=== PATIENT | female | born 1995 | race Caucasian/White ===

== ENCOUNTER 2018-09-06 20:25 | Emergency (ER) | payer OTHER ==
[2018-09-06 22:22] VITALS: BP 118/50
--- NOTE | 2018-09-06 22:22 | ER Document Report ---
ED Medical Screen (RME) - General Chief Complaint: Drainage from Ear Stated Complaint: EAR BLEEDING Time Seen by Provider: 09/06/18 20:52 Mode of Arrival: Ambulatory Information source: Patient Notes: 22-year-old female presented to ED for complaint of left ear pain and bleeding. She states she woke up with her ear full of blood this morning. She has level 2 pain in the ear when I examined her. There is no obvious source for the bleeding but there is dark old blood filling the ear canal. Patient states she has had multiple ear surgeries and widening surgeries to this ear. She states she has not put anything in her ear to injure her ear. I have consulted Dr. Méndez who will come and examined the patient and take over the patient's care. I have greeted and performed a rapid initial assessment of this patient. A comprehensive ED assessment and evaluation of the patient, analysis of test results and completion of medical decision making process will be conducted by an additional ED providers. TRAVEL OUTSIDE OF THE [place] IN LAST 30 DAYS: No - Related Data Allergies/Adverse Reactions: No Known Allergies Allergy (Unverified 09/06/18 20:29) Past Medical History Renal/ Medical History: Denies: Hx Peritoneal Dialysis
--- NOTE | 2018-09-06 23:33 | ER Document Report ---
ED ENT - General Chief Complaint: Drainage from Ear Stated Complaint: EAR BLEEDING Time Seen by Provider: 09/06/18 20:52 Primary Care Provider: SILVINO SPANN DO [ASSOCIATE] - Follow up in 1 week Mode of Arrival: Ambulatory TRAVEL OUTSIDE OF THE [place] 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 Denies any trauma or other injury to the area recently. - Related Data Allergies/Adverse Reactions: No Known Allergies Allergy (Unverified 09/06/18 20:29) Past Medical History - General Information source: Patient - Social History Smoking Status: Never Smoker Family History: None Patient has suicidal ideation: No Patient has homicidal ideation: No Renal/ Medical History: Denies: Hx Peritoneal Dialysis Review of Systems - Review of Systems -: Yes All other systems reviewed and negative Physical Exam - Vital signs Vitals: Temp Pulse BP Pulse Ox 98.3 F 68 118/50 L 98 09/06/18 20:47 09/06/18 20:47 09/06/18 20:47 09/06/18 20:47 - General General appearance: Appears well, Alert - HEENT Head: Normocephalic Eyes: Normal Conjunctiva: Normal Cornea: Normal Ears: Other - The right ear is normal in appearance and the external, has a clear auditory canal, normal TM Left ear demonstrates obvious blood at the edge, there is a mass which occludes the entire auditory canal thereafter - Respiratory Respiratory status: No respiratory distress Chest status: Nontender Breath sounds: Normal Chest palpation: Normal - Cardiovascular Rhythm: Regular Heart sounds: Normal auscultation Murmur: No - Abdominal Inspection: Normal Distension: No distension Bowel sounds: Normal Tenderness: Nontender Organomegaly: No organomegaly - Back Back: Normal, Nontender - Extremities General upper extremity: Normal inspection, Nontender, Normal color, Normal ROM, Normal temperature General lower extremity: Normal inspection, Nontender, Normal color, Normal ROM, Normal temperature, Normal weight bearing. No: Glory's sign - Neurological Neuro grossly intact: Yes Cognition: Normal Orientation: AAOx4 [place] Coma Scale Eye Opening: Spontaneous Sally Coma Scale Verbal: Oriented [place] Coma Scale Motor: Obeys Commands [place] Coma Scale Total: 15 Speech: Normal Motor strength normal: LUE, RUE, LLE, RLE Sensory: Normal Course - Re-evaluation Re-evalutation: 22-year-old female with spontaneous bleeding out of her left ear. On examination she has a large occluding bloody mass at the end of the auditory canal. Upon investigation tried to use a speculum to remove as much blood as possible, following removal of blood there continues to be a large occluding mass. Applied hydrogen peroxide to the ear for cleaning, after application of hydrogen peroxide blood improved and was gone out of the ear canal, what appeared was a large mass which was a combination of wax and unknown substance. Using gentle manipulation with bayonet forceps the mass was removed from the ear, upon investigation it appears to be a large piece of her cholesteatosis from the auditory canal. Her auditory canal is now patent, the bleeding has stopped and appears to have been from the base of the mass itself. - Vital Signs Vital signs: Temp Pulse Resp BP Pulse Ox 98.3 F 68 118/50 L 98 09/06/18 20:47 09/06/18 20:47 09/06/18 20:47 09/06/18 20:47 Procedures - Additional Procedures foreign body removal Notes: 09/07/18 04:26 The left auditory canal has a large visualized mass, following gentle manipulation with bayonet forcep large cholesteatoma was removed from patient's left auditory canal. Discharge - Discharge Clinical Impression: Cholesteatoma Qualifiers: Laterality: left Qualified Code(s): H71.92 - Unspecified cholesteatoma, left ear Bleeding from ear Qualifiers: Laterality: left Qualified Code(s): H92.22 - Otorrhagia, left ear Condition: Good Disposition: HOME, SELF-CARE Additional Instructions: You were seen today in the emergency department for the bleeding from your ear. You had evaluation including a physical exam, it looks like your Colestid at home is the cause of the bleeding in your ear. I think that likely you should follow-up with a ear nose and throat doctor for reinvestigation of this. Return in case of worsening bleeding, pain in the ear, other injury. Referrals: SILVINO SPANN DO [ASSOCIATE] - Follow up in 1 week
== END 2018-09-06 23:39 | disposition home or self-care (01) ==
LOC: ER 20:25
DX: H71.92 Unspecified cholesteatoma, left ear (principal); H92.22 Otorrhagia, left ear
CPT/HCPCS: 99282